=== PATIENT | female | born 2000 | race Caucasian/White ===

== ENCOUNTER 2018-06-18 19:37 | Emergency (ER) | payer OTHER ==
--- NOTE | 2018-06-18 20:02 | ED ---
Laceration/Wound HPI - HPI Summary HPI Summary: Patient is a 17-year-old female who presents to emergency department for a finger laceration that occurred just prior to arrival. 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 No significant past medical history. Symptoms are mild in severity. Touching finger makes symptoms worse. Rest makes symptoms better. Pt. unaware of last tetanus immunization. - History of Current Complaint Stated Complaint: LT HAND LACERATION Time Seen by Provider: 06/18/18 19:58 Hx Obtained From: Patient Pain Intensity: 5 - Allergy/Home Medications Allergies/Adverse Reactions: Allergies Allergy/AdvReac Type Severity Reaction Status Date / Time No Known Allergies Allergy Verified 06/18/18 19:54 PMH/Surg Hx/FS Hx/Imm Hx Previously Healthy: Yes Infectious Disease History: No Infectious Disease History: Denies: Traveled Outside the in Last 30 Days - Social History Occupation: Employed Full-time Lives: With Family Review of Systems Positive: Other - Laceration to distal 3rd digit on left hand Negative: Weakness, Paresthesia, Numbness All Other Systems Reviewed And Are Negative: Yes Physical Exam Triage Information Reviewed: Yes Vital Signs On Initial Exam: Initial Vitals Temp Pulse Resp BP Pulse Ox 99.2 F 98 16 126/66 100 06/18/18 19:50 06/18/18 19:50 06/18/18 19:50 06/18/18 19:50 06/18/18 19:50 Vital Signs Reviewed: Yes Appearance: Positive: Well-Appearing - Pt. sitting on chair in NAD Skin: Positive: Warm, Dry Head/Face: Positive: Normal Head/Face Inspection Eyes: Positive: Normal, EOMI Neck: Positive: Supple Musculoskeletal: Positive: Other - Macerated laceration to the distal 3rd digit of left hand. Distal aspect of nail is gone. Neurological: Positive: Normal, CN Intact II-III Psychiatric: Positive: Affect/Mood Appropriate Procedures - Procedure Summary Procedure Summary: Digital block was performed to 3rd digit of left hand using 4cc of 1% lidocaine. Pt. tolerated well and had good anesthesia. Laceration repair: 3 4-0 nylon sutures placed to approximate distal finger laceration or 3rd digit, left. Wound was roughly 1cm and irregular shaped. Wound was copiously irrigated with NS and cleaned with hibiclens. Sterile dressing placed. Finger splint was placed. Pt. tolerated well. Diagnostics - Vital Signs Vital Signs Temp Pulse Resp BP Pulse Ox 06/18/18 19:50 99.2 F 98 16 126/66 100 - Laboratory Lab Statement: Any lab studies that have been ordered have been reviewed, and results considered in the medical decision making process. Laceration Repair Course/Dx - Course Course Of Treatment: Pt. presenting for distal fingertip amputation. Digital block was performed for anesthesia. Finger xray is showing distal finger fracture. I spoke with valdo garcia, Dr. Amaya, who would like wound closed and they will see pt. in the office. Wound was clean and closed as noted above. Pt. started on Keflex. Tetanus was updated. Splint placed. Pt. to call ortho office tomorrow morning for apt. To keep wound clean and dry. keep splint in place. To ice and elevate. Tylenol or Motrin for pain as directed. To return to ER for signs of infection. Pt. understands and agrees with plan. - Clinical Impression Provider Diagnoses: Open fracture, Finger fracture, Fingertip amputation Discharge - Sign-Out/Discharge Documenting (check all that apply): Patient Departure - Discharge Plan Condition: Good Disposition: HOME Prescriptions: Cephalexin CAP* [Keflex CAP*] 500 mg PO BID #20 cap Patient Education Materials: Finger Fracture (ED), Finger Amputation (ED) Forms: *School Release, *Work Release Referrals: Rufino Amaya MD [Medical Doctor] - No Primary Care Phys,NOPCP [Primary Care Provider] - Additional Instructions: Call Dr. Amaya's officer tomorrow morning for an appointment Keep wound clean and dry Wear finger splint Ice and elevate Tylenol or Motrin for pain as directed - Billing Disposition and Condition Condition: GOOD Disposition: Home
[2018-06-18] MEDS ORDERED: Lidocaine 1%* 5 ML VIAL INJ ONE (20:07)
[2018-06-18] MEDS ORDERED: Cephalexin CAP* 500 MG PO ONE (21:39)
[2018-06-18] MEDS ORDERED: Tetan/Diph/Pertus SYR(Tdap)* 0.5 ML SYR(BOOSTRIX) use SYR IM ONE (21:41)
[2018-06-18 22:23] VITALS: BP 123/68
--- NOTE | 2018-06-19 07:34 | RAD ---
INDICATION: Traumatic amputation/laceration COMPARISON: None TECHNIQUE: AP, lateral, and oblique views were obtained. FINDINGS: There is fracture the tuft with distracted fragment. There is underlying soft tissue injury. No other fractures are evident. IMPRESSION: DISTRACTED FRACTURE THE TUFT AND LACERATION. R0
== END 2018-06-18 22:22 | disposition home or self-care (01) ==
LOC: EDBD → ED 19:37
DX: S61.213A Laceration without foreign body of left middle finger without damage to nail, initial encounter (principal); W31.2XXA Contact with powered woodworking and forming machines, initial encounter; Y92.9 Unspecified place or not applicable; Z23 Encounter for immunization
CPT/HCPCS: 12001; 73140; 90471; 90715; 99282; A9270-GY

== ENCOUNTER 2018-06-20 10:45 | Emergency (ER) | payer OTHER ==
[2018-06-20 12:11] VITALS: BP 108/51
--- NOTE | 2018-06-20 12:40 | ED ---
Skin Complaint - HPI Summary HPI Summary: Patient is a 17-year-old female who was seen 2 days ago for a tuft fracture and avulsion of the distal tip of the left third finger. She arrives today with concern over a small amount of yellow drainage from the area. Denies any erythema or pain. She states the area has decreased in swelling and feels much improved since she was seen 2 days ago. She was a little concerned over an infection at this time. She denies any fevers, sweats, chills. She has a follow-up with Dr. Singletary on 06/24/18. - History of Current Complaint Chief Complaint: EDLacSutureRecheck Time Seen by Provider: 06/20/18 10:48 Stated Complaint: WOUND ON LT FINGER Hx Obtained From: Patient Onset/Duration: Started Hours Ago Skin Exposure Onset/Duration: Hours Ago Timing: Constant Onset Severity: Moderate Current Severity: Moderate Pain Intensity: 2 Pain Scale Used: 0-10 Numeric Aggravating Symptom(s): Nothing Alleviating Symptom(s): Nothing Associated Signs & Symptoms: Negative Related History: Trauma - Allergy/Home Medications Allergies/Adverse Reactions: Allergies Allergy/AdvReac Type Severity Reaction Status Date / Time No Known Allergies Allergy Verified 06/20/18 11:00 Home Medications: Home Medications ISOtretinoin [Isotretinoin] 20 mg PO DAILY 06/20/18 [History Confirmed 06/20/18] Norgestimate-Ethinyl Estradiol [[id number]-[id number] Tablet] 1 tab PO DAILY 06/20/18 [ History Confirmed 06/20/18] PMH/Surg Hx/FS Hx/Imm Hx Previously Healthy: Yes - Immunization History Date of Tetanus Vaccine: 06/18/2018 Date of Influenza Vaccine: 2017 Hx Pertussis Vaccination: No Immunizations Up to Date: Yes Infectious Disease History: No Infectious Disease History: Denies: Traveled Outside the [place] in Last 30 Days - Social History Occupation: Unemployed Lives: With Family Alcohol Use: Occasionally Substance Use Type: Reports: None Smoking Status (MU): Never Smoked Tobacco Review of Systems Constitutional: Negative Negative: Fever, Chills, Skin Diaphoresis Negative: Palpitations, Chest Pain Negative: Shortness Of Breath, Cough Genitourinary: Negative Positive: no symptoms reported, see HPI Negative: Arthralgia, Myalgia Positive: Other - distal tuft fracture with distal tip skin avulsion Neurological: Negative All Other Systems Reviewed And Are Negative: Yes Physical Exam Triage Information Reviewed: Yes Vital Signs On Initial Exam: Initial Vitals Temp Pulse Resp BP Pulse Ox 98.4 F 66 16 104/63 100 06/20/18 10:56 06/20/18 10:56 06/20/18 10:56 06/20/18 10:56 06/20/18 10:56 Vital Signs Reviewed: Yes Appearance: Positive: Well-Appearing, No Pain Distress Skin: Positive: Warm, Skin Color Reflects Adequate Perfusion, Other - distal tip skin avulsion with fx Head/Face: Positive: Normal Head/Face Inspection Eyes: Positive: EOMI, MICHELLE, Conjunctiva Clear Neck: Positive: Supple, No Lymphadenopathy Respiratory/Lung Sounds: Positive: Clear to Auscultation, Breath Sounds Present Cardiovascular: Positive: RRR, Pulses are Symmetrical in both Upper and Lower Extremities Musculoskeletal: Positive: Pain @ - skin avulsion to distal tip of third finger without significant drainage or bleeding Neurological: Positive: Speech Normal Psychiatric: Positive: Affect/Mood Appropriate AVPU Assessment: Alert Diagnostics - Vital Signs Vital Signs Temp Pulse Resp BP Pulse Ox 06/20/18 12:10 98.1 F 82 18 108/51 96 06/20/18 10:56 98.4 F 66 16 104/63 100 - Laboratory Lab Statement: Any lab studies that have been ordered have been reviewed, and results considered in the medical decision making process. Course/Dx - Course Course Of Treatment: Evaluated wound. No signs of erythema or purulent drainage. No signs of infection. She is able to bend at the PIP joint without pain. Denies any pain to the finger or hand. Denies any bleeding from the area. Occlusive medicated gauze wrapped and tube gauze applied. She will continue to less soap and water run down the fingertip with an antimicrobial soap, patent dry and reapply bandage after approximately 2 hours open to air. She will keep splint applied. She will keep her appointment on Friday with Dr. Singletary and return if she develops any symptoms of erythema, fever or other signs of infection. - Diagnoses Provider Diagnoses: Avulsion of skin of middle finger Discharge - Sign-Out/Discharge Documenting (check all that apply): Patient Departure - Discharge Plan Condition: Stable Disposition: HOME Forms: *Work Release Referrals: No Primary Care Phys,NOPCP [Primary Care Provider] - Additional Instructions: Celi dish soap - run with water over the wound once per day Keep the area covered when in a dirty environment Leave open to air a few hours per day if possible - then re-wrap with occlusive gauze and white gauze Leave splint applied when gauze is applied Continue with antibiotics Celi dish soap gauze wraps - Billing Disposition and Condition Condition: STABLE Disposition: Home
== END 2018-06-20 12:10 | disposition home or self-care (01) ==
LOC: ED 10:45
DX: S61.203D Unspecified open wound of left middle finger without damage to nail, subsequent encounter (principal); X58.XXXD Exposure to other specified factors, subsequent encounter
CPT/HCPCS: 99282

== ENCOUNTER 2018-06-24 10:04 | Emergency (ER) | payer OTHER ==
[2018-06-24 11:30] VITALS: BP 116/66
--- NOTE | 2018-06-24 11:35 | ED ---
ED Suture/Wound Check - HPI Summary HPI Summary: Patient is a 17-year-old female presenting to the ED with request for suture removal to the left distal tip of the finger. There are 3 sutures placed, with dried blood overlying. Denies any numbness or tingling. Denies any pain. - History Of Current Complaint Chief Complaint: EDLacSutureRecheck Stated Complaint: NEEDS TO HAVE STITCHES OUT Time Seen by Provider: 06/24/18 10:06 Hx Obtained From: Patient Onset/Duration: Sudden Onset Severity: Mild Pain Intensity: 0 Pain Scale Used: 0-10 Numeric - Allergies/Home Medications Allergies/Adverse Reactions: Allergies Allergy/AdvReac Type Severity Reaction Status Date / Time No Known Allergies Allergy Verified 06/24/18 10:15 PMH/Surg Hx/FS Hx/Imm Hx Previously Healthy: Yes - Immunization History Date of Tetanus Vaccine: 06/18/2018 Date of Influenza Vaccine: 2017 Hx Pertussis Vaccination: No Immunizations Up to Date: Yes Infectious Disease History: No Infectious Disease History: Denies: Traveled Outside the [place] in Last 30 Days - Social History Occupation: Employed Full-time Lives: With Family Alcohol Use: Occasionally Hx Substance Use: No Substance Use Type: Reports: None Hx Tobacco Use: No Smoking Status (MU): Never Smoked Tobacco Review of Systems Constitutional: Negative Eyes: Negative Respiratory: Negative Gastrointestinal: Negative Positive: Other - 3 sutures placed with dried blood to the tip of the finger Neurological: Negative All Other Systems Reviewed And Are Negative: Yes Physical Exam Triage Information Reviewed: Yes Vital Signs On Initial Exam: Initial Vitals Temp Pulse Resp BP Pulse Ox 98.7 F 88 16 117/60 98 06/24/18 10:11 06/24/18 10:11 06/24/18 10:11 06/24/18 10:11 06/24/18 10:11 Vital Signs Reviewed: Yes Appearance: Positive: Well-Appearing, Well-Nourished Skin: Positive: Warm, Skin Color Reflects Adequate Perfusion, Other - 3 sutures to the distal tip of the finger Eyes: Positive: EOMI, MICHELLE, Conjunctiva Clear Neck: Positive: Supple, No Lymphadenopathy Respiratory/Lung Sounds: Positive: Clear to Auscultation, Breath Sounds Present Cardiovascular: Positive: RRR, Pulses are Symmetrical in both Upper and Lower Extremities Musculoskeletal: Positive: Normal, Strength/ROM Intact Neurological: Positive: Sensory/Motor Intact, Alert, Oriented to Person Place, Time, Speech Normal Psychiatric: Positive: Normal, Affect/Mood Appropriate AVPU Assessment: Alert Diagnostics - Vital Signs Vital Signs Temp Pulse Resp BP Pulse Ox 06/24/18 11:29 98.5 F 81 18 116/66 99 06/24/18 10:11 98.7 F 88 16 117/60 98 - Laboratory Lab Statement: Any lab studies that have been ordered have been reviewed, and results considered in the medical decision making process. Course/Dx - Course Course Of Treatment: Soaked the finger with chlorhexidine and warm water as there was dried blood overlying 3 sutures. 3 sutures removed. Xeroform gauze applied. Patient is given information on switching her insurance so she is able to see our orthopedics. - Clinical Impression Provider Diagnoses: Visit for suture removal Discharge - Sign-Out/Discharge Documenting (check all that apply): Patient Departure - Discharge Plan Condition: Stable Disposition: HOME Referrals: Rufino Amaya MD [Medical Doctor] - No Primary Care Phys,NOPCP [Primary Care Provider] - - Billing Disposition and Condition Condition: STABLE Disposition: Home
== END 2018-06-24 11:29 | disposition home or self-care (01) ==
LOC: ED 10:04
DX: S61.219D Laceration without foreign body of unspecified finger without damage to nail, subsequent encounter (principal); X58.XXXD Exposure to other specified factors, subsequent encounter
CPT/HCPCS: 99282

== ENCOUNTER 2024-05-21 15:54 | Inpatient (IN) ==
[2024-05-21] MEDS ORDERED: Lidocaine 1% VIAL 10 MG/ML 30 ML VIAL INJ PRN (17:23)
[2024-05-21] MEDS: miSOPROStol 100 mcg TAB ONE ×2 (18:44→23:09)
[2024-05-21 19:34] LABS: Urine Benzodiazepine Screen None Detected (None Detect); Urine Cannabinoids Screen None Detected (None Detect); Urine Opiates Screen None Detected (None Detect)
[2024-05-22 04:36] LABS: ABS Eosinophils 0.1 10^3/uL (0.0-0.5); ABS Lymphocytes 2.1 10^3/uL (1.0-4.8); ABS Monocytes 0.8 10^3/uL (0.0-0.9); ABS Neutrophils 10.4 10^3/uL (1.5-7.6); ABS Nucleated RBC 0.01 10^3/ul; Eosinophil % 0.6 %; Hematocrit 35.7 % (35-45); Hemoglobin 11.9 g/dL (11.5-14.3); Lymphocyte % 15.8 %; Mean Corpuscular Hemoglobin 25.8 pg (27-33); Mean Corpuscular Hgb Conc 33.4 g/dL (31-36); Mean Corpuscular Volume 77.2 fL (80-97); Mean Platelet Volume 9.3 fL (7.5-11.2); Nucleated Red Blood Cells % 0.1 %/100WBC (0.0-0.8); Platelet Count 298 10^3/uL (150-450); Red Blood Count 4.63 10^6/uL (3.63-4.92); Red Cell Distribution Width 14.2 % (12-17); White Blood Count 13.4 10^3/uL (3.8-11.8)
[2024-05-22] MEDS: Oxytocin in LR 20,000 MILLI.UNIT/1,000 ML BAG IV SCH (04:39)
[2024-05-22] MEDS: Lactated Ringers 1000 ml BAG 1,000 ML IV SCH (04:41)
[2024-05-22] MEDS: Lactated Ringers 1000 ml BAG 1,000 ML IV ONE (07:42)
[2024-05-22] MEDS: OBEPIDURAL (200 ML) 200 ML EPIDURAL ONE (08:53)
[2024-05-22] MEDS ORDERED: Phenylephrine 40 mcg/mL 10mL (400mcg) SYRINGE IV PUSH PRN ×2 (09:12)
[2024-05-22] MEDS ORDERED: Sodium Citrate/Citric Acid LIQ 15 ML UDC PO PRN (09:12)
[2024-05-22 09:40] LABS: Urine Appearance Clear; Urine Bilirubin Negative (Negative); Urine Blood 2+ (Negative); Urine Color Light-Yellow; Urine Glucose Negative (Negative); Urine Ketones Negative (Negative); Urine Nitrite Negative (Negative); Urine Protein Negative (Negative); Urine Specific Gravity 1.024 (1.002-1.030); Urine Urobilinogen Negative (Negative); Urine pH 6.5 (5.0-8.0)
[2024-05-22 09:57] LABS: Urine Bacteria Absent /HPF (Absent); Urine Red Blood Cell 3+(>10/hpf) /HPF (0-Trace); Urine Squamous Epithelial Cell Present /HPF (Absent); Urine White Blood Cell Trace(0-5/hpf) /HPF (0-Trace)
[2024-05-22] MEDS ORDERED: Lactated Ringers 1000 ml BAG 1,000 ML IV SCH ×2 (10:00→23:00)
[2024-05-22] MEDS: OBEPIDURAL (200 ML) 200 ML EPIDURAL SCH (11:01)
[2024-05-22] MEDS ORDERED: Glycerin ADULT 2.4 gm SUPP PR PRN (22:13)
[2024-05-22] MEDS: Witch Hazel PAD JAR TOPICAL PRN (23:35)
[2024-05-22] MEDS: Dibucaine 1% OINT 28.35 GM TUBE PR PRN (23:35)
[2024-05-23 08:48] LABS: ABS Basophils 0.1 10^3/uL (0.0-0.1); ABS Lymphocytes 2.4 10^3/uL (1.0-4.8); ABS Monocytes 0.7 10^3/uL (0.0-0.9); ABS Neutrophils 12.2 10^3/uL (1.5-7.6); Eosinophil % 0.3 %; Hematocrit 33.3 % (35-45); Lymphocyte % 15.2 %; Mean Corpuscular Hemoglobin 25.7 pg (27-33); Mean Corpuscular Volume 77.7 fL (80-97); Platelet Count 259 10^3/uL (150-450); Red Blood Count 4.28 10^6/uL (3.63-4.92); Red Cell Distribution Width 14.1 % (12-17); White Blood Count 15.5 10^3/uL (3.8-11.8)
[2024-05-23] MEDS: Lidocaine 1.5% EPI 1:200,000 30 ML SDV ONE (13:32)
[2024-05-23] MEDS: Buffered Lidocaine 1% SYRIN 1 ml INTRADERM ONE (13:32)
[2024-05-23] MEDS: Oxytocin in LR 20,000 MILLI.UNIT/1,000 ML BAG IV SCH ×2 (13:33)
[2024-05-23] MEDS: Lactated Ringers 1000 ml BAG 1,000 ML IV ONE (13:33)
[2024-05-24 20:33] VITALS: BP 112/60
== END 2024-05-24 21:40 | disposition home or self-care (01) | DRG 560 ==
LOC: MCHOBOUT 15:54 → MCHOB 17:26
PROVIDERS: ATTEND Advanced Practice Midwife